=== PATIENT | male | born 1945 | race Caucasian/White ===

== ENCOUNTER 2017-03-11 23:23 | Emergency (ER) | payer MEDICARE, BC ==
[2017-03-12] MEDS ORDERED: NS 0.9% 1000 ML* 1,000 ML IV SCH (01:15)
[2017-03-12 02:05] LABS: Hematocrit 40 % (42-52); Hemoglobin 13.5 g/dl (14.0-18.0); Mean Corpuscular HGB Conc 34 g/dl (31-36); Mean Corpuscular Hemoglobin 30 pg (27-31); Mean Corpuscular Volume 88 fL (80-94); Mean Platelet Volume 8 um3 (7.4-10.4); Red Cell Distribution Width 14 % (10.5-15); White Blood Count 8.2 10^3/ul (3.5-10.8)
[2017-03-12 02:22] LABS: Albumin 3.7 g/dL (3.2-5.2); BUN/Creatinine Ratio 14.6 (8-20); C Reactive Protein 11.34 mg/L (< 5.00); Calcium 8.3 mg/dL (8.6-10.3); EGFR African American 65.9 (>60); EGFR Non-African American 51.2 (>60); Globulin 3.2 g/dL (2-4); Potassium 3.6 mmol/L (3.5-5.0); Total Bilirubin 0.6 mg/dL (0.2-1.0); Total Protein 6.9 g/dL (6.4-8.9)
[2017-03-12 02:37] LABS: TSH (Thyroid Stimulating Horm) 2.53 mcIU/mL (0.34-5.60)
[2017-03-12] MEDS ORDERED: Nitroglycerin TAB 0.4 MG* 0.4 MG TAB SL ONE (02:49)
[2017-03-12] MEDS ORDERED: Iodixanol* (CONTRAST) 320 MG/ML 100 ML SDV IV ONE (04:30)
--- NOTE | 2017-03-12 07:04 | ED ---
Heidi Maher Rebecca, scribed for Tomasz Man MD on 03/12/17 at 0113 . HPI Chest Pain - HPI Summary HPI Summary: Pt is a 72 y/o M who presents to ED c/o CP. Pain began at approximately 1600 today and is located in the midsternal region. Previously, the pain radiated to the neck and shoulder, but now it is discrete to the midsternal region. At its worst (about 1730) the pain was 7/10 and currently pain is moderate, ranked 5/ 10. Described as sharp, stating it's as though you're "playing football and somebody nails me in the chest with his helmet." Took 325 mg ASA at 2230. Sx aggravated by bending over and laying down, alleviated by sitting up, unchanged by palpation. Additionally c/o fatigue and SOB (dyspnea at exertion), beginning yesterday. Denies N/V, diaphoresis, edema, abdominal pain. Had a stress test with Dr. Villela done about 1 year ago that was negative. This weekend, he drove up to the area from [place]. - History of Current Complaint Chief Complaint: EDChestPainROMI Time Seen by Provider: 03/12/17 00:56 Hx Obtained From: Patient Onset/Duration: Started Hours Ago, Still Present Time of Onset: 16:00 Initial Severity: Severe - 7/10 Current Severity: Moderate Pain Intensity: 5 Pain Scale Used: 0-10 Numeric Chest Pain Location: Mid Sternal Chest Pain Radiates: Yes Chest Pain Radiates To:: Shoulder - Resolved, Neck - Resolved Character: Sharp/Stabbing Aggravating Factor(s): Other: - Laying down, bending over Alleviating Factor(s): Other: - Sitting up Associated Signs and Symptoms: Negative: Diaphoresis, Nausea, Vomiting - Allergy/Home Medications Allergies/Adverse Reactions: Allergies Allergy/AdvReac Type Severity Reaction Status Date / Time Amoxicillin Allergy Intermediate Rash Verified 03/11/17 23:55 PMH/Surg Hx/FS Hx/Imm Hx Endocrine/Hematology History: Denies: Hx Diabetes Cardiovascular History: Reports: Hx Hypercholesterolemia, Hx Hypertension, Other Cardiovascular Problems/Disorders - ? what per pt and states it has resolved Denies: Hx Congestive Heart Failure, Hx Coronary Artery Disease GI History: Reports: Other GI Disorders - hx diverticulitis, f/u per pt no s/s History: Denies: Hx Renal Disease - Surgical History Surgery Procedure, Year, and Place: hernia, Infectious Disease History: No Infectious Disease History: Denies: Traveled Outside the [place] in Last 30 Days - Family History Known Family History: Negative: Cardiac Disease - Social History Substance Use Type: Reports: None Smoking Status (MU): Never Smoked Tobacco Review of Systems Positive: Fatigue. Negative: Skin Diaphoresis Positive: Chest Pain Positive: Shortness Of Breath - dyspnea at exertion Negative: Abdominal Pain, Vomiting, Nausea Negative: Edema All Other Systems Reviewed And Are Negative: Yes Physical Exam - Summary Physical Exam Summary: General: well-appearing, no pain distress Skin: warm, color reflects adequate perfusion, dry Head: normal Eyes: EOMI, [place] ENT: normal Neck: supple, nontender Respiratory: CTA, breath sounds present Cardiovascular: RRR Abdomen: soft, nontender Bowel: present Musculoskeletal: normal, strength/ROM intact Neurological: normal, sensory/motor intact, A&O x3 Psychological: affect/mood appropriate Triage Information Reviewed: Yes Vital Signs On Initial Exam: Initial Vitals Temp Pulse Resp BP Pulse Ox 99.2 F 70 16 131/69 98 03/11/17 23:30 03/11/17 23:30 03/11/17 23:30 03/11/17 23:30 03/11/17 23:30 Vital Signs Reviewed: Yes Diagnostics - Vital Signs Vital Signs Temp Pulse Resp BP Pulse Ox 03/11/17 23:30 99.2 F 70 16 131/69 98 - Laboratory Lab Results: Lab Results 03/12/17 03/12/17 03/12/17 Range/Units 01:45 01:45 01:45 WBC (3.5-10.8) 10^3/ul RBC (4.0-5.4) 10^6/ul Hgb (14.0-18.0) g/dl Hct (42-52) % MCV (80-94) fL MCH (27-31) pg MCHC (31-36) g/dl RDW (10.5-15) % Plt Count (150-450) 10^3/ul MPV (7.4-10.4) um3 Neut % (Auto) (38-83) % Lymph % (Auto) (25-47) % Sharp % (Auto) (1-9) % Eos % (Auto) (0-6) % Baso % (Auto) (0-2) % Absolute Neuts (auto) (1.5-7.7) 10^3/ul Absolute Lymphs (auto) (1.0-4.8) 10^3/ul Absolute Monos (auto) (0-0.8) 10^3/ul Absolute Eos (auto) (0-0.6) 10^3/ul Absolute Basos (auto) (0-0.2) 10^3/ul Absolute Nucleated RBC 10^3/ul Nucleated RBC % INR (Anticoag Therapy) 0.89 (0.89-1.11) APTT 27.9 (26.0-36.3) seconds D-Dimer, Quantitative 573 H (Less Than 230) ng/mL Sodium 139 (133-145) mmol/L Potassium 3.6 (3.5-5.0) mmol/L Chloride 109 (101-111) mmol/L Carbon Dioxide 22 (22-32) mmol/L Anion Gap 8 (2-11) mmol/L BUN 20 (6-24) mg/dL Creatinine 1.37 H (0.67-1.17) mg/dL Est GFR ( Amer) 65.9 (>60) Est GFR (Non-Af Amer) 51.2 (>60) BUN/Creatinine Ratio 14.6 (8-20) Glucose 110 H (70-100) mg/dL Lactic Acid (0.5-2.0) mmol/L Calcium 8.3 L (8.6-10.3) mg/dL Magnesium 2.0 (1.9-2.7) mg/dL Total Bilirubin 0.60 (0.2-1.0) mg/dL AST 19 (13-39) U/L ALT 16 (7-52) U/L Alkaline Phosphatase 117 H (34-104) U/L Total Creatine Kinase 77 (10-223) U/L CK-MB (CK-2) 1.1 (0.6-6.3) ng/mL Troponin I 0.00 (<0.04) ng/mL C-Reactive Protein 11.34 H (< 5.00) mg/L B-Natriuretic Peptide 62 ( - 100) pg/mL Total Protein 6.9 (6.4-8.9) g/dL Albumin 3.7 (3.2-5.2) g/dL Globulin 3.2 (2-4) g/dL Albumin/Globulin Ratio 1.2 (1-3) Lipase 19 (11.0-82.0) U/L TSH 2.53 (0.34-5.60) mcIU/mL 03/12/17 03/12/17 03/12/17 Range/Units 01:45 01:45 06:00 WBC 8.2 (3.5-10.8) 10^3/ul RBC 4.50 (4.0-5.4) 10^6/ul Hgb 13.5 L (14.0-18.0) g/dl Hct 40 L (42-52) % MCV 88 (80-94) fL MCH 30 (27-31) pg MCHC 34 (31-36) g/dl RDW 14 (10.5-15) % Plt Count 319 (150-450) 10^3/ul MPV 8 (7.4-10.4) um3 Neut % (Auto) 57.8 (38-83) % Lymph % (Auto) 26.0 (25-47) % Sharp % (Auto) 11.3 H (1-9) % Eos % (Auto) 4.0 (0-6) % Baso % (Auto) 0.9 (0-2) % Absolute Neuts (auto) 4.7 (1.5-7.7) 10^3/ul Absolute Lymphs (auto) 2.1 (1.0-4.8) 10^3/ul Absolute Monos (auto) 0.9 H (0-0.8) 10^3/ul Absolute Eos (auto) 0.3 (0-0.6) 10^3/ul Absolute Basos (auto) 0.1 (0-0.2) 10^3/ul Absolute Nucleated RBC 0.01 10^3/ul Nucleated RBC % 0.1 INR (Anticoag Therapy) (0.89-1.11) APTT (26.0-36.3) seconds D-Dimer, Quantitative (Less Than 230) ng/mL Sodium (133-145) mmol/L Potassium (3.5-5.0) mmol/L Chloride (101-111) mmol/L Carbon Dioxide (22-32) mmol/L Anion Gap (2-11) mmol/L BUN (6-24) mg/dL Creatinine (0.67-1.17) mg/dL Est GFR ( Amer) (>60) Est GFR (Non-Af Amer) (>60) BUN/Creatinine Ratio (8-20) Glucose (70-100) mg/dL Lactic Acid 1.0 (0.5-2.0) mmol/L Calcium (8.6-10.3) mg/dL Magnesium (1.9-2.7) mg/dL Total Bilirubin (0.2-1.0) mg/dL AST (13-39) U/L ALT (7-52) U/L Alkaline Phosphatase (34-104) U/L Total Creatine Kinase (10-223) U/L CK-MB (CK-2) (0.6-6.3) ng/mL Troponin I 0.00 (<0.04) ng/mL C-Reactive Protein (< 5.00) mg/L B-Natriuretic Peptide ( - 100) pg/mL Total Protein (6.4-8.9) g/dL Albumin (3.2-5.2) g/dL Globulin (2-4) g/dL Albumin/Globulin Ratio (1-3) Lipase (11.0-82.0) U/L TSH (0.34-5.60) mcIU/mL Result Diagrams: 03/12/17 01:45 03/12/17 01:45 Lab Statement: Any lab studies that have been ordered have been reviewed, and results considered in the medical decision making process. - Radiology CXR Xray Interpretation: No Acute Changes - NAD Radiology Interpretation Completed By: ED Physician - CT Chest/Thorax CTA CT Interpretation: No Acute Changes - No large central pulmonary embolism. Mild cardiomegaly with calcified coronary arteriosclerosis. Enlarged pulmonary arteries consistent with pulmonary artery hypertension. ED physician reviewed radiology report and agrees. CT Interpretation Completed By: Radiologist - EKG 3367 Cardiac Rate: NL - 71 bpm EKG Rhythm: Sinus Rhythm ST Segment: Normal Ectopy: None Re-Evaluation - Re-Evaluation First Eval Re-Evaluation Time: 02:46 Comment: Discussed results with the pt. Second Eval Re-Evaluation Time: 05:39 Comment: Discussed results with family who accompanies pt. Pt is comfortably asleep. Chest Pain Course/Dx - Course Assessment/Plan: Pt is a 72 y/o M who presents to ED c/o sharp midsternal CP, beginning at approximately 1600 today. Previously, the pain radiated to the neck and shoulder, but now it is discrete to the midsternal region. At its worst (about 1730) the pain was 7/10 and currently pain is moderate, ranked 5/ 10. Took 325 mg ASA at 2230. Sx aggravated by bending over and laying down, alleviated by sitting up, unchanged by palpation. Additionally c/o fatigue and SOB (dyspnea at exertion), beginning yesterday. Denies N/V, diaphoresis, edema, abdominal pain. Had a stress test with Dr. Villela done about 1 year ago that was negative. This weekend, he drove up to the area from [place]. Troponin of 0.00. D-Dimer of 573. Chest/thorax CTA and CXR reveal no acute findings. EKG is nl sinus rhythm with no ST changes or ectopy. In the ED course, pt received fluids and NTG. Pending repeat troponin, pt will be D/C to home with Dx of chest pain. He understands and agrees. Patient medications reviewed this visit. BP noted and advised to f/u with PCP. CHEST PAIN GONE AT DISCHARGE. DISCUSSED ADMISSION VERSES OUT PATIENT F/U WITH DR VILLELA. PATIENT PREFERS OUT PATIENT F/U. - Diagnoses Provider Diagnoses: Chest pain Discharge - Discharge Plan Condition: Stable Disposition: HOME Patient Education Materials: Chest Pain (ED) Referrals: Nadia Washburn MD [Primary Care Provider] - Leonel Villela MD [Medical Doctor] - Additional Instructions: FOLLOW UP WITH YOUR DOCTOR. RETURN TO THE EMERGENCY DEPARTMENT FOR ANY WORSENING OF YOUR CONDITION; CHEST PAIN, SHORTNESS OF BREATH, YOU FEEL ILL OR QUESTIONS OR CONCERNS. The documentation as recorded by the Heidi uriostegui Rebecca accurately reflects the service I personally performed and the decisions made by me, Tomasz Man MD.
--- NOTE | 2017-03-12 07:39 | RAD ---
INDICATION: Chest pain. COMPARISON: There are no prior studies available for comparison. TECHNIQUE: A portable view of the chest was obtained. FINDINGS: Cardiac and mediastinal contours appear to be within normal limits. The lungs are underinflated and clear. No pleural effusion is seen. IMPRESSION: NO EVIDENCE FOR ACUTE DISEASE.
--- NOTE | 2017-03-12 08:04 | RAD ---
INDICATION: Chest pain, positive d-dimer. COMPARISON: Comparison is made with a prior CT angiogram of the chest from July 26, 2015 and a prior chest x-ray study from March 12, 2017. TECHNIQUE: A CT angiogram of the chest was performed with intravenous following intravenous injection of 87 ml of Visipaque 320 nonionic contrast. Contiguous axial sections were obtained from the lung apices through the lung bases. Images were reconstructed in the coronal and sagittal planes. FINDINGS: Evaluation of the pulmonary arteries is limited due to suboptimal opacification of the arteries and slight motion artifact. No central pulmonary embolism is seen. There is enlargement of the central pulmonary arteries suggestive of pulmonary artery hypertension which appears unchanged. The heart is mildly enlarged. No pericardial effusion is present. There are coronary artery calcifications present. The thoracic aorta is normal in caliber and demonstrates homogeneous contrast opacification. There are numerous small mediastinal lymph nodes present in the aorticopulmonary window, right paratracheal, pretracheal and subcarinal regions which appear unchanged from the prior exam. No significant enlarged hilar lymph nodes are seen. There are mild dependent bilateral lower lobe infiltrates suggestive of atelectasis. The lungs are otherwise clear. No pleural effusion is seen. There is a mild compression fracture of the superior endplate of the T4 vertebral body which is unchanged. No other focal osseous abnormalities are seen. IMPRESSION: 1. LIMITED STUDY, NO EVIDENCE FOR CENTRAL PULMONARY ARTERY EMBOLISM. 2. ENLARGEMENT OF THE CENTRAL PULMONARY ARTERIES SUGGESTIVE OF PULMONARY ARTERY HYPERTENSION.
[2017-03-12 08:07] VITALS: BP 144/74
== END 2017-03-12 08:05 | disposition home or self-care (01) ==
LOC: ED 23:23
DX: R06.02 Shortness of breath (principal); R07.9 Chest pain, unspecified
CPT/HCPCS: 36415; 71010; 71275; 80053; 82550; 82553; 83605; 83690; 83735; 83880; 84443; 84484; 85025; 85379; 85610; 85730; 86140; 93005; 99282; A9270-GY; Q9967

== ENCOUNTER 2018-11-21 10:33 | Emergency (ER) | payer MEDICARE, OTHER ==
[2018-11-21 11:24] VITALS: BP 149/68
--- NOTE | 2018-11-21 12:05 | UC ---
Knee Pain HPI - HPI Summary HPI Summary: 73-year-old male 73-year-old male comes in with a chief complaint of left knee pain. He's had chronic knee pain. Over the last month associated a lot worse and now recently it has swelling. Pain is worse with ambulation and weightbearing. Ibuprofen does help. No fevers or chills no signs of any infection. No locking no clicking. Knee feels stable when walking. - History of Current Complaint Chief Complaint: UCLowerExtremity Stated Complaint: LT KNEE Time Seen by Provider: 11/21/18 11:35 Pain Intensity: 5 - Allergies/Home Medications Allergies/Adverse Reactions: Allergies Allergy/AdvReac Type Severity Reaction Status Date / Time amoxicillin Allergy Intermediate Rash Verified 11/21/18 11:24 Home Medications: Home Medications Ibuprofen 400 mg PO ONCE 11/21/18 [History Confirmed 11/21/18] Wallagrass-3 Fatty Acids/Fish Oil [Fish Oil 1,000 mg Softgel] 1 tab PO DAILY [History Confirmed 11/21/18] PMH/Surg Hx/FS Hx/Imm Hx Previously Healthy: Yes Cardiovascular History: Hypertension - Surgical History Surgical History: Yes Surgery Procedure, Year, and Place: hernia, - Family History Known Family History: Negative: Cardiac Disease - Social History Alcohol Use: Weekly Substance Use Type: None Smoking Status (MU): Never Smoked Tobacco - Immunization History Most Recent Tetanus Shot: UNSURE Review of Systems All Other Systems Reviewed And Are Negative: Yes Constitutional: Positive: Negative Skin: Positive: Negative Eyes: Positive: Negative ENT: Positive: Negative Respiratory: Positive: Negative Cardiovascular: Positive: Negative Gastrointestinal: Positive: Negative Motor: Positive: Negative Neurovascular: Positive: Negative Musculoskeletal: Positive: Other: - SEE HPI. Negative: Calf Tenderness Neurological: Positive: Negative Psychological: Positive: Negative Is Patient Immunocompromised?: No Physical Exam Triage Information Reviewed: Yes Appearance: Well-Appearing, No Pain Distress, Well-Nourished Vital Signs: Initial Vital Signs Temp 99.0 F 11/21/18 11:18 Pulse 57 11/21/18 11:18 Resp 18 11/21/18 11:18 BP 149/68 11/21/18 11:18 Pulse Ox 100 11/21/18 11:18 Vital Signs Reviewed: Yes Eye Exam: Normal Eyes: Positive: Conjunctiva Clear Neck: Positive: Supple Respiratory: Positive: No respiratory distress Musculoskeletal: Positive: Other: - LEFT KNEE WITH EFFUSION, NO ERYTHEMA, STABLE TO EXAM, NEGATIVE EDWIN'S, TENDER ANTERIOR MEDIAL KNEE. Neurological: Positive: Alert, Muscle Tone Normal Psychological: Positive: Age Appropriate Behavior Skin Exam: Normal Knee Pain Course/Dx - Course Course Of Treatment: Patient Name: RORY HUMPHREY Medical Record#: [id number] Ordering Physician: Tomasz Man MD Acct.#: [id number] : 1945 Age: 73 Sex: M Location: [facility] Exam Date: 11/21/18 112 ADM Status: REG ER Order Information: KNEE LEFT 4+ VWS Accession Number: [id number] CPT: 43595 HISTORY: PAIN S/P INJURY . COMPARISONS: None relevant available at the time of dictation. VIEWS: 4, Frontal, lateral, axial, and oblique views of the left knee FINDINGS: BONE DENSITY: There is diffuse osteopenia. BONES: There is no displaced fracture. JOINTS: There is mild tricompartmental osteoarthritis. ALIGNMENT: There is no dislocation. SOFT TISSUES: Unremarkable. OTHER FINDINGS: None. IMPRESSION: OSTEOPENIA. MILD OSTEOARTHRITIS. NO ACUTE OSSEOUS INJURY. IF SYMPTOMS PERSIST, RECOMMEND REPEAT IMAGING <Electronically signed by Edson Juan MD in [place]> 11/21/18 1152 I discussed the x-rays with the patient. The overall plan is to treat with ibuprofen and ice. Patient has a neoprene sleeve his been using which does help. He also give the patient a cane for help with ambulation. Follow up either with his primary care physician or sports medicine or orthopedics. - Differential Dx/Diagnosis Provider Diagnosis: Left knee pain, Knee effusion, left Discharge - Sign-Out/Discharge Documenting (check all that apply): Patient Departure All imaging exams completed and their final reports reviewed: Yes - Discharge Plan Condition: Stable Disposition: HOME Prescriptions: Ibuprofen TAB* [Motrin TAB* 600 MG] 600 mg PO Q8H PRN #30 tab PRN Reason: Pain Patient Education Materials: Swollen Knee Joint (ED), Knee Pain (ED) Referrals: Nadia Washburn MD [Primary Care Provider] - [facility] [Provider Group] Santa Magana MD [Medical Doctor] - Additional Instructions: FOLLOW UP WITH SPORTS MEDICINE, ORTHOPEDICS AND/OR YOUR PRIMARY CARE DOCTOR. GET RECHECKED SOONER IF YOUR CONDITION WORSENS OR ANY QUESTIONS OR CONCERNS. - Billing Disposition and Condition Condition: STABLE Disposition: Home
== END 2018-11-21 12:25 | disposition home or self-care (01) ==
LOC: UCEAST 10:33
DX: M25.562 Pain in left knee (principal); M25.462 Effusion, left knee; I10 Essential (primary) hypertension
CPT/HCPCS: 99213; G0463